=== PATIENT | male | born 1940 | race Caucasian/White ===

== ENCOUNTER 2022-12-15 00:45 | Inpatient (IN) | payer MEDICARE, BC ==
[2022-12-15 04:01] LABS: Hematocrit 49.6 % (42-50); Hemoglobin 15.4 g/dL (12.5-18.0); Red Blood Count 5.23 x10^6/uL (4.1-5.6); White Blood Count 8.2 x10^3/uL (4.0-10.5)
[2022-12-15 04:02] LABS: BASOPHIL % 0.6 % (0.0-0.4); IMMATURE GRAN % 0.1 % (0.00-0.4); Lymphocytes % 13.2 % (24.0-44.0); Mean Cell Volume 94.8 fL (78-100); Mean Corpuscular Hemoglobin 29.4 pg (26-32); Mean Platelet Volume 6.2 fL (7.5-11.0); Monocytes % 7.3 % (0.0-12.0); Neutrophil % 74.8 % (36.0-66.0); Platelet Count 217 x10^3/uL (150-450); Red Cell Distribution Width 14.2 % (11.5-14.0)
[2022-12-15 04:03] LABS: BLOOD UREA NITROGEN 38 mg/dL (9-20); Creatinine 1 1.73 mg/dL (0.66-1.25); EST GLOMERULAR FILTRATION RATE 40.4 ML/MIN; Glucose 99 mg/dL (74-106)
[2022-12-15 04:04] LABS: ALKALINE PHOSPHATASE 108 U/L (38-126); CHLORIDE 108 mmol/L (98-107); CK-Creatinine Phosphokinase 91 U/L (55-170); Calcium 9.2 mg/dL (8.4-10.2); Carbon Dioxide 28 mmol/L (22-30); MAGNESIUM 2.2 mg/dL (1.6-2.3); Potassium 4.9 mmol/L (3.5-5.1); SGOT/AST 25 U/L (17-59); SGPT/ALT 19 U/L (0-50); SODIUM 142 mmol/L (137-145); TROPONIN < 0.012 ng/mL (0.000-0.034); Total Protein 7.2 g/dL (6.3-8.2)
[2022-12-15 04:05] LABS: ANION GAP 10.9 MEQ/L (5-15); INR 1.14 (0.8-3.0); PROTIME 11.9 SECONDS (9.4-12.5); PTT 27.3 SECONDS (25.1-36.5)
[2022-12-15 04:06] LABS: Appearance 1 (Clear); Ketones Trace (Negative); Leukocyte Esterase Negative (Negative); Nitrite Negative (Negative); Protein,Urine Dip 30 (Negative); Specific Gravity 20 (1.005-1.030)
[2022-12-15 04:07] LABS: Bacteria None Seen /HPF (None Seen); Bilirubin Negative (Negative); Blood Negative (Negative); Epithelial Cells None Seen /HPF (None Seen); Glucose, Urine 100 mg/dL (Negative); RBC 0-2 /HPF (0-5); WBC 0-2 /HPF (0-5)
[2022-12-15 04:08] LABS: ADD URINE CULTURE? NO (NO)
[2022-12-15 05:00] LABS: INFLUENZA A NEGATIVE (NEGATIVE); INFLUENZA B NEGATIVE (NEGATIVE); RESPIRATORY SYNCTIAL VIRUS NEGATIVE (Negative); SARS-CoV-2 Xpert Express NEGATIVE (NEGATIVE)
--- NOTE | 2022-12-15 09:14 | XRAY ---
Indication: Acute mental status change. Left leg numbness. History atrial fibrillation. Multiple contiguous axial images obtained through the head without contrast. Comparison: January 20, 2016 Again age-appropriate global atrophy and moderate periventricular degenerative micro-ischemia bilaterally. No acute intracranial hemorrhage, abnormal extra-axial fluid collection, or mass effect. Fourth ventricle is midline without hydrocephalus. Bony calvarium intact. Moderate mucoperiosteal thickening both maxillary sinuses. Remaining paranasal sinuses and mastoid air cells are clear. Impression: Again nonacute senile brain. Incidental chronic maxillary sinusitis. Comment: Preliminary interpretation made by [facility]. No critical discrepancy.
--- NOTE | 2022-12-15 09:20 | XRAY ---
Indication: Left leg numbness. Multiple contiguous axial images obtained through the lumbar spine. Sagittal and coronal reformatted images obtained. Comparison: None Osseous structures demineralized. Bilateral L5-S1 posterior fusion hardware and intervertebral spacer produces beam artifact. Axial images negative for acute fracture, suspicious bony lesions, or spinal canal stenosis. There is mild broad-based L2-S1 disc bulge. Also minimal/mild T11-L4 degenerative vacuum disc phenomena. Incidental bilateral L5 spondylolysis with 4-5 mm anterior spondylolisthesis. Above findings produces subsequent bilateral L3-S1 foraminal/stenosis greatest at L5-S1 level. Sagittal and coronal reformatted images demonstrates normal lumbar lordosis. Multilevel disc space narrowing greatest at L2-L4 levels. Incidental tiny/small T11-L3 Schmorl nodes. No acute compression fracture. Visualized noncontrasted soft tissues demonstrates mild scattered aortoiliac calcifications and 2.7 cm left renal cyst. Impression: 1. Multilevel degenerative changes. Greatest extent at L5-S1 with there is bilateral spondylolysis with grade 1 listhesis and subsequent bilateral foraminal stenosis. 2. Incidental osteopenia, multilevel Schmorl nodes, L5-S1 fusion hardware, arteriosclerotic disease, and left renal cysts. Comment: Preliminary interpretation made by [facility]. No critical discrepancy.
[2022-12-15] MEDS: Sodium Chloride 0.9% 1000 ML 1,000 ML IV SCH ×2 (09:29→21:01)
[2022-12-15] MEDS: PROTONIX 40 MG IV IV SCH (09:29)
[2022-12-15] MEDS: ELIQUIS 2.5 MG TABLET PO SCH ×2 (11:02→20:58)
[2022-12-15] MEDS: Toprol Xl 100 MG PO SCH (11:02)
[2022-12-15] MEDS: ENTRESTO 49 MG-51 MG TABLET PO SCH ×2 (11:02→20:57)
--- NOTE | 2022-12-15 14:02 | XRAY ---
Indication: Left-sided weakness. Stroke. Sagittal, coronal, and axial MRI brain performed without contrast using T1, T2, FLAIR, diffusion, and ADC sequences. Comparison: None Age-appropriate global atrophy and moderate periventricular degenerative micro-ischemia signal bilaterally. Diffusion images demonstrates 2.0 x 1.0 cm focus of restricted signal right periventricular white matter anteriorly. Near the vertex, at least 2-3 additional subcentimeter foci of acute micro-ischemia seen right centrum semi-ovale. No acute intracranial hemorrhage, abnormal extra-axial fluid collection, or mass effect. Fourth ventricle is midline without hydrocephalus. 7/8 cranial nerve nerve complex bilateral and symmetric. Left parasellar internal carotid artery demonstrates signal either from sluggish flow versus occlusion. Normal flow void signal within the remaining major intracerebral circulation. Normal appearing craniocervical junction and sella turcica. Moderate mucosal thickening both maxillary sinuses. Impression: 1. Small focus acute ischemia right periventricular white matter anteriorly. Smaller acute micro-ischemia near the right vertex. No acute hemorrhage or mass effect. 2. Sluggish flow versus occlusion parasellar segment left internal carotid artery. 3. Atrophy and degenerative micro-ischemia within normal limits for patient's age. 4. Incidental bilateral maxillary sinus disease.
[2022-12-15] MEDS: Vitamin C 500 MG PO SCH (20:56)
[2022-12-15] MEDS: Calcium 500MG W/Vit D Tablet PO SCH (20:56)
[2022-12-15] MEDS ORDERED: NON-FORMULARY ITEM (Sacubitril/Valsartan [Entresto 24 Mg-26 Mg Tablet] 1 EACH Tablet) PO SCH (22:00)
[2022-12-15] MEDS ORDERED: NON-FORMULARY ITEM (Calcium Carbonate/Vitamin D3 [Calcium 250-D Tablet] 1 EACH Tablet) PO SCH (22:00)
[2022-12-15] MEDS ORDERED: NON-FORMULARY ITEM (Ascorbic Acid [Vitamin C] 1,000 MG Tablet) PO SCH (22:00)
[2022-12-16 06:11] LABS: Risk Ratio 4.1
[2022-12-16] MEDS: Sodium Chloride 0.9% 1000 ML 1,000 ML IV SCH ×2 (06:34→17:02)
[2022-12-16] MEDS ORDERED: TYLENOL 325 MG PO PRN (07:38)
[2022-12-16 08:41] LABS: Hematocrit 46.3 % (42-50); Hemoglobin 14.7 g/dL (12.5-18.0); Mean Cell Volume 93.7 fL (78-100); Mean Corpuscular Hemoglobin 29.8 pg (26-32); Mean Corpuscular Hgb Concent. 31.7 g/dL (32-36); Mean Platelet Volume 11.9 fL (7.5-11.0); Platelet Count 218 x10^3/uL (150-450); Red Blood Count 4.94 x10^6/uL (4.1-5.6); Red Cell Distribution Width 13.9 % (11.5-14.0); White Blood Count 6.3 x10^3/uL (4.0-10.5)
[2022-12-16] MEDS: ENTRESTO 49 MG-51 MG TABLET PO SCH ×2 (09:36→21:17)
[2022-12-16 09:37] LABS: ALBUMIN 3.5 g/dL (3.5-5.0); ANION GAP 8.1 MEQ/L (5-15); BILIRUBIN,TOTAL 0.5 mg/dL (0.2-1.3); Calcium 8.6 mg/dL (8.4-10.2); Creatinine 1 1.27 mg/dL (0.66-1.25); EST GLOMERULAR FILTRATION RATE 57.7 ML/MIN; Potassium 4.3 mmol/L (3.5-5.1); Total Protein 6.4 g/dL (6.3-8.2)
[2022-12-16] MEDS: ELIQUIS 2.5 MG TABLET PO SCH ×2 (09:37→21:16)
[2022-12-16] MEDS: PROTONIX 40 MG IV IV SCH (09:37)
[2022-12-16] MEDS: Toprol Xl 100 MG PO SCH (09:37)
--- NOTE | 2022-12-16 16:42 | PCM.HP ---
History of Present Illness - Chief Complaint Chief Complaint: left lower extrimity weakness for 1 day History of Present Illness: is a 82 year old male with significant past medical history of congestive heart failure and atrial fibrillation started having weakness on his left lower extremity: Symmetrically 5-6 hours ago with some difficulty in speech when patient was in the emergency room speech difficulty disappeared but still has some weakness in left lower extremity. Patient denies any loss of consciousness chest pain nausea vomiting shortness of breath. - Review of Systems Constitutional: No Fever, No Chills Eyes: No Symptoms Ears, Nose, & Throat: No Symptoms Respiratory: No Cough, No Short Of Breath Cardiac: No Chest Pain, No Edema, No Syncope Abdominal/Gastrointestinal: No Abdominal Pain, No Nausea, No Vomiting, No Diarrhea Genitourinary Symptoms: No Dysuria Musculoskeletal: No Back Pain, No Neck Pain Skin: No Rash Neurological: Focal Weakness, Sensory Changes, Speech Changes, No Dizziness Psychological: No Symptoms Endocrine: No Symptoms Hematologic/Lymphatic: No Symptoms Immunological/Allergic: No Symptoms Medications & Allergies Home Medications: Home Medication List Apixaban [Eliquis 2.5 mg Tablet] 2.5 mg PO BID 12/15/22 [History Confirmed 0 12/15/22] Ascorbic Acid [Vitamin C] 1,000 mg PO HS 12/15/22 [History Confirmed 12/15/22] Calcium Carbonate/Vitamin D3 [Calcium 250-D Tablet] 1 each PO HS 12/15/22 [History Confirmed 12/15/22] Metoprolol Succinate 100 mg [Toprol Xl 100 MG] 100 mg PO DAILY 12/15/22 [History Confirmed 12/15/22] Sacubitril/Valsartan [Entresto 24 mg-26 mg Tablet] 1 each PO BID 12/15/22 [History Confirmed 12/15/22] Allergies/Adverse Reactions: Allergies Allergy/AdvReac Type Severity Reaction Status Date / Time No Known Drug Allergies Allergy Unverified 01/20/16 17:03 - Past Medical History Past Medical History: No Cardiac History: Other Comment: AFIB - Past Surgical History Past Surgical History: Yes Musculskeletal Surgical Hx: Orthopedic Surgery - Social History Smoking Status: Never smoker Exposure to second hand smoke: No Alcohol: None Drug Use: none - Physical Exam Vital Signs: Vital Signs - 24 hr Temp Pulse Resp BP Pulse Ox 12/16/22 11:40 97.9 F 85 16 116/80 94 L 12/16/22 07:55 97.1 F 79 20 156/94 98 12/16/22 07:11 97 12/16/22 03:41 98.0 F 79 19 127/86 97 12/16/22 02:45 95 12/15/22 23:39 98.0 F 84 15 128/90 98 12/15/22 20:00 97.8 F 82 18 104/57 98 General Appearance: no apparent distress, alert Neurologic Exam: alert, oriented x 3, cooperative, normal mood/affect, nml cerebellar function, nml station & gait, motor deficits (left lower extrimity), sensory deficit Eye Exam: PERRL/EOMI, eyes nml inspection Ears, Nose, Throat Exam: normal ENT inspection, TMs normal, pharynx normal, moist mucous membranes Neck Exam: normal inspection, non-tender, supple, full range of motion Respiratory Exam: normal breath sounds, lungs clear, No respiratory distress Cardiovascular Exam: regular rate/rhythm, normal heart sounds, normal peripheral pulses Gastrointestinal/Abdomen Exam: soft, normal bowel sounds, No tenderness, No mass Back Exam: normal inspection, normal range of motion, No CVA tenderness, No vertebral tenderness Extremity Exam: normal inspection, normal range of motion, pelvis stable, parasthesia Skin Exam: normal color, warm, dry, No rash Lymphatic Exam: No adenopathy Results - Labs Lab/Micro Results: Lab Results-Last 24 Hours 12/16/22 12/16/22 12/16/22 Range/Units 05:20 05:20 05:24 WBC 6.3 (4.0-10.5) x10^3/uL RBC 4.94 (4.1-5.6) x10^6/uL Hgb 14.7 (12.5-18.0) g/dL Hct 46.3 (42-50) % MCV 93.7 (78-100) fL MCH 29.8 (26-32) pg MCHC 31.7 L (32-36) g/dL RDW 13.9 (11.5-14.0) % Plt Count 218 (150-450) x10^3/uL MPV 11.9 H (7.5-11.0) fL Sodium (137-145) mmol/L Potassium (3.5-5.1) mmol/L Chloride (98-107) mmol/L Carbon Dioxide (22-30) mmol/L Anion Gap (5-15) MEQ/L BUN (9-20) mg/dL Creatinine (0.66-1.25) mg/dL Estimated GFR ML/MIN Glucose (74-106) mg/dL Hemoglobin A1c 5.05 (4.5-6.0) % Calcium (8.4-10.2) mg/dL Total Bilirubin (0.2-1.3) mg/dL AST (17-59) U/L ALT (0-50) U/L Alkaline Phosphatase (38-126) U/L Serum Total Protein (6.3-8.2) g/dL Albumin (3.5-5.0) g/dL Triglycerides 71 (30-150) mg/dL Cholesterol 184 (50-200) mg/dL LDL Cholesterol 100 (30-100) mg/dL HDL Cholesterol 45 (40-60) mg/dL Heart Disease Risk Ratio 4.1 12/16/22 Range/Units 05:24 WBC (4.0-10.5) x10^3/uL RBC (4.1-5.6) x10^6/uL Hgb (12.5-18.0) g/dL Hct (42-50) % MCV (78-100) fL MCH (26-32) pg MCHC (32-36) g/dL RDW (11.5-14.0) % Plt Count (150-450) x10^3/uL MPV (7.5-11.0) fL Sodium 138 (137-145) mmol/L Potassium 4.3 (3.5-5.1) mmol/L Chloride 112 H (98-107) mmol/L Carbon Dioxide 22 (22-30) mmol/L Anion Gap 8.1 (5-15) MEQ/L BUN 30 H (9-20) mg/dL Creatinine 1.27 H (0.66-1.25) mg/dL Estimated GFR 57.7 ML/MIN Glucose 88 (74-106) mg/dL Hemoglobin A1c (4.5-6.0) % Calcium 8.6 (8.4-10.2) mg/dL Total Bilirubin 0.50 (0.2-1.3) mg/dL AST 20 (17-59) U/L ALT 16 (0-50) U/L Alkaline Phosphatase 91 (38-126) U/L Serum Total Protein 6.4 (6.3-8.2) g/dL Albumin 3.5 (3.5-5.0) g/dL Triglycerides (30-150) mg/dL Cholesterol (50-200) mg/dL LDL Cholesterol (30-100) mg/dL HDL Cholesterol (40-60) mg/dL Heart Disease Risk Ratio - Radiology Impressions Radiology Exams & Impressions: Radiology Procedures Category Date Time Status HEAD WITHOUT CONTRAST [CT] Routine Exams 12/15/22 04:03 Completed LUMBAR SPINE W/O [CT] Routine Exams 12/15/22 04:02 Completed MRI BRAIN W/O CONTRAST [MRI] Routine Exams 12/15/22 11:15 Completed MRI/MRI BRAIN W/O CONTRAST Indication: Left-sided weakness. Stroke. Sagittal, coronal, and axial MRI brain performed without contrast using T1, T2, FLAIR, diffusion, and ADC sequences. Comparison: None Age-appropriate global atrophy and moderate periventricular degenerative micro-ischemia signal bilaterally. Diffusion images demonstrates 2.0 x 1.0 cm focus of restricted signal right periventricular white matter anteriorly. Near the vertex, at least 2-3 additional subcentimeter foci of acute micro-ischemia seen right centrum semi-ovale. No acute intracranial hemorrhage, abnormal extra-axial fluid collection, or mass effect. Fourth ventricle is midline without hydrocephalus. 7/8 cranial nerve nerve complex bilateral and symmetric. Left parasellar internal carotid artery demonstrates signal either from sluggish flow versus occlusion. Normal flow void signal within the remaining major intracerebral circulation. Normal appearing craniocervical junction and sella turcica. Moderate mucosal thickening both maxillary sinuses. Impression: 1. Small focus acute ischemia right periventricular white matter anteriorly. Smaller acute micro-ischemia near the right vertex. No acute hemorrhage or mass effect. 2. Sluggish flow versus occlusion parasellar segment left internal carotid artery. 3. Atrophy and degenerative micro-ischemia within normal limits for patient's age. 4. Incidental bilateral maxillary sinus disease. - Other Procedures and Tests Respiratory Therapy 12/16/22 05:14 Oxygen Nasal Cannula 3 lpm Assessment/Plan (1) TIA (transient ischemic attack) Current Visit: Yes Status: Acute Qualifiers: Transient cerebral ischemia type: carotid artery syndrome (hemispheric) Qualified Code(s): G45.1 - Carotid artery syndrome (hemispheric) Assessment & Plan: Chief Complaint Diagnosis left lower extrimity weakness for 1 day Allergies Allergy/AdvReac Type Severity Reaction Status Date / Time No Known Drug Allergies Allergy Unverified 01/20/16 17:03 Vital Signs (Last 24 hours) Temp Pulse Resp BP Pulse Ox 12/16/22 16:00 97.9 F 86 16 166/91 97 12/16/22 11:40 97.9 F 85 16 116/80 94 L 12/16/22 07:55 97.1 F 79 20 156/94 98 12/16/22 07:11 97 12/16/22 03:41 98.0 F 79 19 127/86 97 12/16/22 02:45 95 12/15/22 23:39 98.0 F 84 15 128/90 98 12/15/22 20:00 97.8 F 82 18 104/57 98 Home Medications Medication Instructions Recorded Confirmed Last Taken Type Apixaban [Eliquis 2.5 mg Tablet] 2.5 mg PO BID 12/15/22 12/15/22 12/14/22 11:00 History Ascorbic Acid [Vitamin C] 1,000 mg PO HS 12/15/22 12/15/22 12/13/22 23:00 History Calcium Carbonate/Vitamin D3 1 each PO HS 12/15/22 12/15/22 12/13/22 23:00 History [Calcium 250-D Tablet] Metoprolol Succinate 100 mg 100 mg PO DAILY 12/15/22 12/15/22 12/14/22 11:00 History [Toprol Xl 100 MG] Sacubitril/Valsartan [Entresto 24 1 each PO BID 12/15/22 12/15/22 12/14/22 11:00 History mg-26 mg Tablet] Current Medications Generic Name Dose Route Start Last Admin Trade Name Freq PRN Reason Stop Dose Admin Acetaminophen 325 mg 12/16/22 07:38 12/16/22 08:16 Acetaminophen 325 Mg Tablet PO 01/15/23 07:37 325 mg Q4H PRN PRN Administration PAIN, FEVER, HEADACHE Apixaban 2.5 mg 12/15/22 11:00 12/16/22 09:37 Apixaban 2.5 Mg Tablet PO 01/14/23 10:59 2.5 mg BID MASON Administration Ascorbic Acid 1,000 mg 12/15/22 22:00 12/15/22 20:56 Ascorbic Acid 500 Mg Tablet PO 01/14/23 21:59 1,000 mg HS MASON Administration Calcium Carbonate 0.5 tab 12/15/22 22:00 12/15/22 20:56 Calcium 500 Mg W/Vit D PO 01/14/23 21:59 0.5 tab HS MASON Administration Sodium Chloride 1,000 mls @ 100 mls/hr 12/15/22 08:45 12/16/22 06:34 Sodium Chloride 0.9% 1000 Ml IV 01/14/23 08:44 100 mls/hr .Q10H MASON Administration Metoprolol Succinate 100 mg 12/15/22 11:00 12/16/22 09:37 Metoprolol Succinate 100 Mg Tablet.Sa PO 01/14/23 10:59 100 mg DAILY MASON Administration Pantoprazole Sodium 40 mg 12/15/22 10:00 12/16/22 09:37 Pantoprazole 40 Mg Vial IV 01/14/23 09:59 40 mg DAILY MAOSN Administration Sacubitril/Valsartan 0.5 tablet 12/15/22 11:00 12/16/22 09:36 Sacubitril/Valsartan 1 Tablet Tablet PO 01/14/23 10:59 0.5 tablet BID MASON Administration Intake & Output (Last 24 hours) 12/14/22 12/15/22 12/16/22 12/17/22 11:59 11:59 11:59 11:59 Intake Total 240 2809 300 Output Total 1675 Balance 240 1134 300 Weight 80.2 kg Laboratory Results (Last 24 hours) 12/16/22 12/16/22 12/16/22 05:24 05:24 05:20 WBC 6.3 RBC 4.94 Hgb 14.7 Hct 46.3 MCV 93.7 MCH 29.8 MCHC 31.7 L RDW 13.9 Plt Count 218 MPV 11.9 H Sodium 138 Potassium 4.3 Chloride 112 H Carbon Dioxide 22 Anion Gap 8.1 BUN 30 H Creatinine 1.27 H Estimated GFR 57.7 Glucose 88 Hemoglobin A1c 5.05 Calcium 8.6 Total Bilirubin 0.50 AST 20 ALT 16 Alkaline Phosphatase 91 Serum Total Protein 6.4 Albumin 3.5 Triglycerides Cholesterol LDL Cholesterol HDL Cholesterol Heart Disease Risk Ratio 12/16/22 05:20 WBC RBC Hgb Hct MCV MCH MCHC RDW Plt Count MPV Sodium Potassium Chloride Carbon Dioxide Anion Gap BUN Creatinine Estimated GFR Glucose Hemoglobin A1c Calcium Total Bilirubin AST ALT Alkaline Phosphatase Serum Total Protein Albumin Triglycerides 71 Cholesterol 184 LDL Cholesterol 100 HDL Cholesterol 45 Heart Disease Risk Ratio 4.1 Orders (Last 24 hours) Category Date Time Status House Regular Diet Diet 12/15/22 Dinner Active CBC AM.LAB Lab 12/17/22 04:00 Ordered CBC Routine Lab 12/16/22 05:24 Completed CMP AM.LAB Lab 12/17/22 04:00 Ordered CMP Routine Lab 12/16/22 05:24 Completed HEMOGLOBIN A1C Routine Lab 12/16/22 05:20 Completed LIPID PROFILE AM.LAB Lab 12/16/22 05:20 Completed Acetaminophen 325 mg [Tylenol 325 mg] Med 12/16/22 07:38 Active 325 mg PO Q4H PRN PRN Ascorbic Acid 500 mg [Vitamin C 500 MG] Med 12/15/22 22:00 Active 1,000 mg PO HS Calcium Carb/Vitamin D 500 mg* [Calcium 500MG W/Vit D Med 12/15/22 22:00 Active Tablet] 0.5 tab PO HS Oxygen Nasal Cannula 3 lpm RT 12/16/22 05:14 Active Pulse Oximetry .continuos RT 12/16/22 05:13 Active Patient Care Notes (Last 24 hours) 12/16/22 12:13 Nursing Note by Shila Zamarripa ROUNDED ON PATIENT WITH DR. LIVINGSTON. NO NEW ORDERS AT THIS TIME. Initialized on 12/16/22 12:13 - END OF NOTE 12/16/22 10:51 OT Plan of Care Note by Lamar Botello OT Eval OT Eval and Treat MD Order Start: 12/15/22 08:14 Freq: ROUTINE Status: Active Protocol: Created 12/15/22 08:14 JACINTA (Rec: 12/15/22 08:14 JACINTA [id number]) Document 12/15/22 17:24 SHERRELL (Rec: 12/15/22 17:24 SHERRELL [id number]) OT Assessment Pertinent Past Medical History PMH: AFIB,TIA, BACK SURGERY IN 2021, RIGHT ROTATOR CUFF SX IN 2000, LEFT RTC SURGERY IN 2004, CATARACTS REMOVED CURRENT: PATIENT TRIED TO GET UP AROUND 10 PM FOR BATHROOM, AND UNABLE TO MOVE LEFT LEG AND ARM. PATIENT ADMITTED TO HOSPITAL FOR POSSIBLE CVA. PATIENT PRESENTS WITH IMPAIRMENTS IN COORDINATION, BALANCE, AND LEFT SIDE WEAKNESS. Equipment at Home Prior to Admission None Comment BATHROOM: TUB/SHOWER COMBO, RAISED TOILET SEAT LIVES IN 1 LEVEL HOUSE WITH 2 STEPS TO ENTER Date 12/16/22 Feeding WFL Comment SET UP ASSIST Grooming Impaired Comment MIN ASSIST Bathing Impaired Comment MOD ASSIST Dressing Impaired Comment UB: MIN ASSIST LB: MAX ASSIST SOCKS/SHOES: MAX ASSIST Toileting Impaired Comment MOD ASSIST (CLOTHING MANAGEMENT) HYGIENE (SBA) IADLS (If indicated) Homemaking,etc Impaired Bed Mobility Impaired Comment MOD ASSIST FOR SUPINE<>SIT T/F Toilet Transfers Impaired Comment MOD ASSIST Functional Transfers Impaired Comment MOD ASSIST (RECOMMEND MIN ASSIST X2) Functional Endurance FAIR (-): APPROXIMATELY 15 MINUTES IN SITTING POOR (+): APPROXIMATELY 5 MINUTES IN STANDING Cognition ALERT AND ORIENTED X4, FAIR AWARENESS TO LEFT LATERAL LEAN Other Objective Data NO REPORTED PAIN, LEFT UE MMT: 4-/5 AND RIGHT UE MMT: 4+/5, VISUAL ACUITY WFL, SIGNIFICANT LEFT LATERAL LEAN AND KNEE BUCKLING IN STANDING. MIN ASSIST FOR SITTING BALANCE (UE SUPPORT); MAX ASSIST WITH UNSUPPORTED SITTING. Adaptive Equipment/Durable Medical RAISED TOILET SEAT WITH Equipment needed/recommended HANDLES, TUB TRANSFER BENCH, HANDRAIL INTO HOME; OUTPATIENT THERAPY UPON RETURN HOME. Functional Problem List PATIENT PRESENTS WITH LEFT UE AND LE WEAKNESS, IMPAIRED BALANCE, POOR INTERLIMB COORDINATION, DECREASED ACTIVITY TOLERANCE, AND SAFETY AWARENESS Pain Limitations 0/10 Therapuetic Interventions ADLS, FUNCTIONAL ACTIVITY, THERAPEUTIC EXERCISES, NEURO REHAB, FUNCTIONAL TRANSFERS AND MOBILITY, SAFETY AWARENESS Functional Goals of Treatment 1. PATIENT WILL COMPLETE ADLS WITH SBA WITHIN 14 DAYS TO MAXIMIZE INDEPENDENCE WITH I/ ADLS AND REDUCE CAREGIVER BURDEN. 2. PATIENT WILL COMPLETE FUNCTIONAL TRANSFERS MOD INDEP WITHIN 14 DAYS TO IMPROVE INDEPENDENCE WITH I/ADLS. 3. PATIENT WILL INCREASE BUE STRENGTH TO 4+/5 MMT TO IMPROVE ABILITY TO MANAGE AND CARRY I/ADL OBJECTS (CLOTHING, TOILETRY OBJECTS, WALKER, MEALS/CUPS) WITHIN 14 DAYS. 4. PATIENT WILL DEMO UNDERSTANDING AND INDEPENDENCE WITH ALL SAFETY AND ADL EDUCATION WITHIN 14 DAYS TO MAXIMIZE SAFETY WITH RETURN HOME. OT Inpatient Plan of Care Date of Evaluation 12/16/22 Treatment Diagnosis LEFT LE WEAKNESS Frequency/Duration 5X/WEEK Patient assessed for Rehab Services Yes Was notification received of nursing Yes assessment trigger Chart screen completed Yes Are referral orders warranted for Yes evaluation Is an intervention justified at this Yes time Initialized on 12/16/22 10:51 - END OF NOTE 12/16/22 03:05 Nursing Note by Gretchen Omer while sleeping pts 02 dropping to low 70's then back up to low 90's called RT, this nurse went to check on pt he was snoring had O2 probe on finger, called RT, observed pt sleeping and he was snoring then breathing would stop for several seconds, woke pt and put him on O2 ask him about sleep apnea and if used a cpap machine at home, he stated that he used to [facility] ask why he stopped and he stated that he "didn't like it". Let pt know that we had observed him sleeping and that he was stopping breathing for several seconds in a pretty stepwise pattern. Pt agreeable to put 2L of O2 on per NC. Initialized on 12/16/22 03:05 - END OF NOTE (2) Hypertensive CHF (congestive heart failure) Current Visit: Yes Status: Acute Qualifiers: Heart failure type: combined systolic and diastolic Heart failure chronicity: acute on chronic Qualified Code(s): I11.0 - Hypertensive heart disease with heart failure; I50.43 - Acute on chronic combined systolic (congestive) and diastolic (congestive) heart failure Code(s): I11.0 - HYPERTENSIVE HEART DISEASE WITH HEART FAILURE (3) Systolic CHF with reduced left ventricular function, NYHA class 3 Current Visit: Yes Status: Acute Code(s): I50.20 - UNSPECIFIED SYSTOLIC (CONGESTIVE) HEART FAILURE (4) A-fib Current Visit: No Status: Acute Qualifiers: Atrial fibrillation type: unspecified Qualified Code(s): I48.91 - Unspecified atrial fibrillation Code(s): I48.91 - UNSPECIFIED ATRIAL FIBRILLATION
--- NOTE | 2022-12-16 16:45 | PCM.NOTE ---
Date and Time: 12/16/22 1644 Subjective Assessment: doing better. some weakness in LLE - Review of Systems Constitutional: No Fever, No Chills Eyes: No Symptoms Ears, Nose, & Throat: No Symptoms Respiratory: No Cough, No Short Of Breath Cardiac: No Chest Pain, No Edema, No Syncope Abdominal/Gastrointestinal: No Abdominal Pain, No Nausea, No Vomiting, No Diarrhea Genitourinary Symptoms: No Dysuria Musculoskeletal: No Back Pain, No Neck Pain Skin: No Rash Neurological: Focal Weakness, No Dizziness, No Sensory Changes Psychological: No Symptoms Endocrine: No Symptoms Hematologic/Lymphatic: No Symptoms Immunological/Allergic: No Symptoms Objective Exam General Appearance: no apparent distress, alert Neurologic Exam: alert, oriented x 3, cooperative, normal mood/affect, nml cerebellar function, sensation nml, motor deficits, sensory deficit, No slurred speech, No aphasia Skin Exam: normal color, warm, dry Eye Exam: PERRL, EOMI, eyes nml inspection Ears, Nose, Throat Exam: normal ENT inspection, pharynx normal, moist mucous membranes Neck Exam: normal inspection, non-tender, supple, full range of motion Respiratory Exam: normal breath sounds, lungs clear, No respiratory distress Cardiovascular Exam: regular rate/rhythm, normal heart sounds Gastrointestinal/Abdomen Exam: soft, No tenderness, No mass Extremity Exam: normal inspection, normal range of motion Back Exam: normal inspection, normal range of motion, No CVA tenderness, No vertebral tenderness Male Genitalia Exam: deferred Rectal Exam: deferred OBJECTIVE DATA Vital Signs: Vital Signs - 24 hr Temp Pulse Resp BP Pulse Ox 12/16/22 16:00 97.9 F 86 16 166/91 97 12/16/22 11:40 97.9 F 85 16 116/80 94 L 12/16/22 07:55 97.1 F 79 20 156/94 98 12/16/22 07:11 97 12/16/22 03:41 98.0 F 79 19 127/86 97 12/16/22 02:45 95 12/15/22 23:39 98.0 F 84 15 128/90 98 12/15/22 20:00 97.8 F 82 18 104/57 98 Pain Assessment - Last Documented Pain Intensity 0 Pain Scale Used 0-10 Pain Scale Intake and Output: Intake & Output 12/14/22 12/15/22 12/16/22 12/17/22 11:59 11:59 11:59 11:59 Intake Total 240 2809 300 Output Total 8425 Balance 240 1134 300 Weight 80.2 kg Lab Results: Lab Results-Last 24 Hours 12/16/22 12/16/22 12/16/22 Range/Units 05:20 05:20 05:24 WBC 6.3 (4.0-10.5) x10^3/uL RBC 4.94 (4.1-5.6) x10^6/uL Hgb 14.7 (12.5-18.0) g/dL Hct 46.3 (42-50) % MCV 93.7 (78-100) fL MCH 29.8 (26-32) pg MCHC 31.7 L (32-36) g/dL RDW 13.9 (11.5-14.0) % Plt Count 218 (150-450) x10^3/uL MPV 11.9 H (7.5-11.0) fL Sodium (137-145) mmol/L Potassium (3.5-5.1) mmol/L Chloride (98-107) mmol/L Carbon Dioxide (22-30) mmol/L Anion Gap (5-15) MEQ/L BUN (9-20) mg/dL Creatinine (0.66-1.25) mg/dL Estimated GFR ML/MIN Glucose (74-106) mg/dL Hemoglobin A1c 5.05 (4.5-6.0) % Calcium (8.4-10.2) mg/dL Total Bilirubin (0.2-1.3) mg/dL AST (17-59) U/L ALT (0-50) U/L Alkaline Phosphatase (38-126) U/L Serum Total Protein (6.3-8.2) g/dL Albumin (3.5-5.0) g/dL Triglycerides 71 (30-150) mg/dL Cholesterol 184 (50-200) mg/dL LDL Cholesterol 100 (30-100) mg/dL HDL Cholesterol 45 (40-60) mg/dL Heart Disease Risk Ratio 4.1 12/16/22 Range/Units 05:24 WBC (4.0-10.5) x10^3/uL RBC (4.1-5.6) x10^6/uL Hgb (12.5-18.0) g/dL Hct (42-50) % MCV (78-100) fL MCH (26-32) pg MCHC (32-36) g/dL RDW (11.5-14.0) % Plt Count (150-450) x10^3/uL MPV (7.5-11.0) fL Sodium 138 (137-145) mmol/L Potassium 4.3 (3.5-5.1) mmol/L Chloride 112 H (98-107) mmol/L Carbon Dioxide 22 (22-30) mmol/L Anion Gap 8.1 (5-15) MEQ/L BUN 30 H (9-20) mg/dL Creatinine 1.27 H (0.66-1.25) mg/dL Estimated GFR 57.7 ML/MIN Glucose 88 (74-106) mg/dL Hemoglobin A1c (4.5-6.0) % Calcium 8.6 (8.4-10.2) mg/dL Total Bilirubin 0.50 (0.2-1.3) mg/dL AST 20 (17-59) U/L ALT 16 (0-50) U/L Alkaline Phosphatase 91 (38-126) U/L Serum Total Protein 6.4 (6.3-8.2) g/dL Albumin 3.5 (3.5-5.0) g/dL Triglycerides (30-150) mg/dL Cholesterol (50-200) mg/dL LDL Cholesterol (30-100) mg/dL HDL Cholesterol (40-60) mg/dL Heart Disease Risk Ratio Radiology Exams: Radiology Procedures Category Date Time Status HEAD WITHOUT CONTRAST [CT] Routine Exams 12/15/22 04:03 Completed LUMBAR SPINE W/O [CT] Routine Exams 12/15/22 04:02 Completed MRI BRAIN W/O CONTRAST [MRI] Routine Exams 12/15/22 11:15 Completed Multi-Disciplinary Progress Notes: Multi-Disciplinary Progress Notes 12/16/22 10:51 OT Plan of Care Note by Lamar Botello OT Eval OT Eval and Treat MD Order Start: 12/15/22 08:14 Freq: ROUTINE Status: Active Protocol: Created 12/15/22 08:14 JACINTA (Rec: 12/15/22 08:14 JACINTA [id number]) Document 12/15/22 17:24 SHERRELL (Rec: 12/15/22 17:24 KA [id number]) OT Assessment Pertinent Past Medical History PMH: AFIB,TIA, BACK SURGERY IN 2021, RIGHT ROTATOR CUFF SX IN 2000, LEFT RTC SURGERY IN 2004, CATARACTS REMOVED CURRENT: PATIENT TRIED TO GET UP AROUND 10 PM FOR BATHROOM, AND UNABLE TO MOVE LEFT LEG AND ARM. PATIENT ADMITTED TO HOSPITAL FOR POSSIBLE CVA. PATIENT PRESENTS WITH IMPAIRMENTS IN COORDINATION, BALANCE, AND LEFT SIDE WEAKNESS. Equipment at Home Prior to Admission None Comment BATHROOM: TUB/SHOWER COMBO, RAISED TOILET SEAT LIVES IN 1 LEVEL HOUSE WITH 2 STEPS TO ENTER Date 12/16/22 Feeding WFL Comment SET UP ASSIST Grooming Impaired Comment MIN ASSIST Bathing Impaired Comment MOD ASSIST Dressing Impaired Comment UB: MIN ASSIST LB: MAX ASSIST SOCKS/SHOES: MAX ASSIST Toileting Impaired Comment MOD ASSIST (CLOTHING MANAGEMENT) HYGIENE (SBA) IADLS (If indicated) Homemaking,etc Impaired Bed Mobility Impaired Comment MOD ASSIST FOR SUPINE<>SIT T/F Toilet Transfers Impaired Comment MOD ASSIST Functional Transfers Impaired Comment MOD ASSIST (RECOMMEND MIN ASSIST X2) Functional Endurance FAIR (-): APPROXIMATELY 15 MINUTES IN SITTING POOR (+): APPROXIMATELY 5 MINUTES IN STANDING Cognition ALERT AND ORIENTED X4, FAIR AWARENESS TO LEFT LATERAL LEAN Other Objective Data NO REPORTED PAIN, LEFT UE MMT: 4-/5 AND RIGHT UE MMT: 4+/5, VISUAL ACUITY WFL, SIGNIFICANT LEFT LATERAL LEAN AND KNEE BUCKLING IN STANDING. MIN ASSIST FOR SITTING BALANCE (UE SUPPORT); MAX ASSIST WITH UNSUPPORTED SITTING. Adaptive Equipment/Durable Medical RAISED TOILET SEAT WITH Equipment needed/recommended HANDLES, TUB TRANSFER BENCH, HANDRAIL INTO HOME; OUTPATIENT THERAPY UPON RETURN HOME. Functional Problem List PATIENT PRESENTS WITH LEFT UE AND LE WEAKNESS, IMPAIRED BALANCE, POOR INTERLIMB COORDINATION, DECREASED ACTIVITY TOLERANCE, AND SAFETY AWARENESS Pain Limitations 0/10 Therapuetic Interventions ADLS, FUNCTIONAL ACTIVITY, THERAPEUTIC EXERCISES, NEURO REHAB, FUNCTIONAL TRANSFERS AND MOBILITY, SAFETY AWARENESS Functional Goals of Treatment 1. PATIENT WILL COMPLETE ADLS WITH SBA WITHIN 14 DAYS TO MAXIMIZE INDEPENDENCE WITH I/ ADLS AND REDUCE CAREGIVER BURDEN. 2. PATIENT WILL COMPLETE FUNCTIONAL TRANSFERS MOD INDEP WITHIN 14 DAYS TO IMPROVE INDEPENDENCE WITH I/ADLS. 3. PATIENT WILL INCREASE BUE STRENGTH TO 4+/5 MMT TO IMPROVE ABILITY TO MANAGE AND CARRY I/ADL OBJECTS (CLOTHING, TOILETRY OBJECTS, WALKER, MEALS/CUPS) WITHIN 14 DAYS. 4. PATIENT WILL DEMO UNDERSTANDING AND INDEPENDENCE WITH ALL SAFETY AND ADL EDUCATION WITHIN 14 DAYS TO MAXIMIZE SAFETY WITH RETURN HOME. OT Inpatient Plan of Care Date of Evaluation 12/16/22 Treatment Diagnosis LEFT LE WEAKNESS Frequency/Duration 5X/WEEK Patient assessed for Rehab Services Yes Was notification received of nursing Yes assessment trigger Chart screen completed Yes Are referral orders warranted for Yes evaluation Is an intervention justified at this Yes time Initialized on 12/16/22 10:51 - END OF NOTE Assessment/Plan (1) TIA (transient ischemic attack) Current Visit: Yes Status: Acute Qualifiers: Transient cerebral ischemia type: carotid artery syndrome (hemispheric) Qualified Code(s): G45.1 - Carotid artery syndrome (hemispheric) Assessment & Plan: Last Vital Signs Temp 97.9 F 12/16/22 16:00 Pulse 86 12/16/22 16:00 Resp 16 12/16/22 16:00 BP 166/91 12/16/22 16:00 Pulse Ox 97 12/16/22 16:00 Allergies No Known Drug Allergies Allergy (Unverified 01/20/16 17:03) Active Medications Acetaminophen (Acetaminophen 325 Mg Tablet) 325 mg PO Q4H PRN PRN PRN Reason: PAIN, FEVER, HEADACHE Stop: 01/15/23 07:37 Last Admin: 12/16/22 08:16 Dose: 325 mg Apixaban (Apixaban 2.5 Mg Tablet) 2.5 mg PO BID [facility] Stop: 01/14/23 10:59 Last Admin: 12/16/22 09:37 Dose: 2.5 mg Ascorbic Acid (Ascorbic Acid 500 Mg Tablet) 1,000 mg PO HS [facility] Stop: 01/14/23 21:59 Last Admin: 12/15/22 20:56 Dose: 1,000 mg Calcium Carbonate (Calcium 500 Mg W/Vit D) 0.5 tab PO HS [facility] Stop: 01/14/23 21:59 Last Admin: 12/15/22 20:56 Dose: 0.5 tab Sodium Chloride (Sodium Chloride 0.9% 1000 Ml) 1,000 mls @ 100 mls/hr IV .Q10H [facility] Stop: 01/14/23 08:44 Last Admin: 12/16/22 06:34 Dose: 100 mls/hr Metoprolol Succinate (Metoprolol Succinate 100 Mg Tablet.Sa) 100 mg PO DAILY [facility] Stop: 01/14/23 10:59 Last Admin: 12/16/22 09:37 Dose: 100 mg Pantoprazole Sodium (Pantoprazole 40 Mg Vial) 40 mg IV DAILY [facility] Stop: 01/14/23 09:59 Last Admin: 12/16/22 09:37 Dose: 40 mg Sacubitril/Valsartan (Sacubitril/Valsartan 1 Tablet Tablet) 0.5 tablet PO BID [facility] Stop: 01/14/23 10:59 Last Admin: 12/16/22 09:36 Dose: 0.5 tablet Intake & Output 12/16/22 12/17/22 11:59 11:59 Intake Total 2809 300 Output Total 1675 Balance 1134 300 Orders 12/15/22 Dinner House Regular Diet 12/15/22 22:00 Ascorbic Acid 500 mg [Vitamin C 500 MG] 1,000 mg PO HS Calcium Carb/Vitamin D 500 mg* [Calcium 500MG W/Vit D Tablet] 0.5 tab PO HS 12/16/22 05:13 Pulse Oximetry .continuos 12/16/22 05:14 Oxygen Nasal Cannula 3 lpm 12/16/22 07:38 Acetaminophen 325 mg [Tylenol 325 mg] 325 mg PO Q4H PRN PRN 12/17/22 04:00 CBC AM.LAB CMP AM.LAB Lab Tests 12/16/22 12/16/22 12/16/22 05:20 05:20 05:24 WBC 6.3 RBC 4.94 Hgb 14.7 Hct 46.3 MCV 93.7 MCH 29.8 MCHC 31.7 L RDW 13.9 Plt Count 218 MPV 11.9 H Sodium Potassium Chloride Carbon Dioxide Anion Gap BUN Creatinine Estimated GFR Glucose Hemoglobin A1c 5.05 Calcium Total Bilirubin AST ALT Alkaline Phosphatase Serum Total Protein Albumin Triglycerides 71 Cholesterol 184 LDL Cholesterol 100 HDL Cholesterol 45 Heart Disease Risk Ratio 4.1 12/16/22 05:24 WBC RBC Hgb Hct MCV MCH MCHC RDW Plt Count MPV Sodium 138 Potassium 4.3 Chloride 112 H Carbon Dioxide 22 Anion Gap 8.1 BUN 30 H Creatinine 1.27 H Estimated GFR 57.7 Glucose 88 Hemoglobin A1c Calcium 8.6 Total Bilirubin 0.50 AST 20 ALT 16 Alkaline Phosphatase 91 Serum Total Protein 6.4 Albumin 3.5 Triglycerides Cholesterol LDL Cholesterol HDL Cholesterol Heart Disease Risk Ratio (2) Hypertensive CHF (congestive heart failure) Current Visit: Yes Status: Acute Qualifiers: Heart failure type: combined systolic and diastolic Heart failure chronicity: acute on chronic Qualified Code(s): I11.0 - Hypertensive heart disease with heart failure; I50.43 - Acute on chronic combined systolic (congestive) and diastolic (congestive) heart failure Code(s): I11.0 - HYPERTENSIVE HEART DISEASE WITH HEART FAILURE (3) Systolic CHF with reduced left ventricular function, NYHA class 3 Current Visit: Yes Status: Acute Code(s): I50.20 - UNSPECIFIED SYSTOLIC (CONGESTIVE) HEART FAILURE (4) A-fib Current Visit: No Status: Acute Qualifiers: Atrial fibrillation type: unspecified Qualified Code(s): I48.91 - Unspecified atrial fibrillation Code(s): I48.91 - UNSPECIFIED ATRIAL FIBRILLATION
[2022-12-16] MEDS ORDERED: SENOKOT 8.6 MG PO PRN (16:55)
[2022-12-16] MEDS: Vitamin C 500 MG PO SCH (21:17)
[2022-12-16] MEDS: Calcium 500MG W/Vit D Tablet PO SCH (21:17)
[2022-12-17] MEDS: Sodium Chloride 0.9% 1000 ML 1,000 ML IV SCH ×3 (03:52→23:37)
[2022-12-17 06:26] LABS: Hematocrit 46.9 % (42-50); Hemoglobin 14.6 g/dL (12.5-18.0); Mean Cell Volume 96.3 fL (78-100); Mean Corpuscular Hgb Concent. 31.1 g/dL (32-36); Mean Platelet Volume 11.6 fL (7.5-11.0); Platelet Count 187 x10^3/uL (150-450); Red Blood Count 4.87 x10^6/uL (4.1-5.6); White Blood Count 7.1 x10^3/uL (4.0-10.5)
[2022-12-17 06:39] LABS: ALBUMIN 3.4 g/dL (3.5-5.0); BILIRUBIN,TOTAL 0.6 mg/dL (0.2-1.3); Calcium 8.5 mg/dL (8.4-10.2); Creatinine 1 1.26 mg/dL (0.66-1.25); EST GLOMERULAR FILTRATION RATE 58.2 ML/MIN; Total Protein 6.3 g/dL (6.3-8.2)
[2022-12-17] MEDS ORDERED: SENOKOT 8.6 MG PO PRN (07:15)
--- NOTE | 2022-12-17 08:09 | PCM.NOTE ---
Date and Time: 12/17/22807 Subjective Assessment: doing better - Review of Systems Constitutional: No Fever, No Chills Eyes: No Symptoms Ears, Nose, & Throat: No Symptoms Respiratory: No Cough, No Short Of Breath Cardiac: No Chest Pain, No Edema, No Syncope Abdominal/Gastrointestinal: No Abdominal Pain, No Nausea, No Vomiting, No Diarrhea Genitourinary Symptoms: No Dysuria Musculoskeletal: No Back Pain, No Neck Pain Skin: No Rash Neurological: Focal Weakness (LLE), No Dizziness, No Sensory Changes Psychological: No Symptoms Endocrine: No Symptoms Hematologic/Lymphatic: No Symptoms Immunological/Allergic: No Symptoms Objective Exam General Appearance: no apparent distress, alert Neurologic Exam: alert, oriented x 3, cooperative, tower observer II-XII nml as tested, sensation nml, motor deficits (LLE) Skin Exam: normal color, warm, dry Eye Exam: PERRL, EOMI, eyes nml inspection Ears, Nose, Throat Exam: normal ENT inspection, pharynx normal, moist mucous membranes Neck Exam: normal inspection, non-tender, supple, full range of motion Respiratory Exam: normal breath sounds, lungs clear, No respiratory distress Cardiovascular Exam: regular rate/rhythm, normal heart sounds Gastrointestinal/Abdomen Exam: soft, No tenderness, No mass Extremity Exam: normal inspection, normal range of motion Back Exam: normal inspection, normal range of motion, No CVA tenderness, No vertebral tenderness Male Genitalia Exam: deferred Rectal Exam: deferred OBJECTIVE DATA Vital Signs: Vital Signs - 24 hr Temp Pulse Resp BP Pulse Ox 12/17/22 07:59 97.8 F 80 14 149/97 98 12/17/22 06:52 94 L 12/17/22 03:55 97.5 F 84 16 164/90 95 12/16/22 23:42 97.8 F 84 17 165/88 97 12/16/22 19:36 97.7 F 97 H 21 121/60 95 12/16/22 17:55 96 12/16/22 16:00 97.9 F 86 16 166/91 97 12/16/22 11:40 97.9 F 85 16 116/80 94 L Pain Assessment - Last Documented Pain Intensity 0 Pain Scale Used 0-10 Pain Scale Intake and Output: Intake & Output 01/19/23 01/20/23 01/21/23 01/22/23 11:59 11:59 11:59 11:59 Intake Total 240 0449 7679 Output Total 1282 5332 Balance 240 0934 0623 Weight 80.2 kg Lab Results: Lab Results-Last 24 Hours 12/16/22 12/16/22 12/17/22 Range/Units 05:24 05:24 05:23 WBC 6.3 7.1 (4.0-10.5) x10^3/uL RBC 4.94 4.87 (4.1-5.6) x10^6/uL Hgb 14.7 14.6 (12.5-18.0) g/dL Hct 46.3 46.9 (42-50) % MCV 93.7 96.3 (78-100) fL MCH 29.8 30.0 (26-32) pg MCHC 31.7 L 31.1 L (32-36) g/dL RDW 13.9 14.0 (11.5-14.0) % Plt Count 218 187 (150-450) x10^3/uL MPV 11.9 H 11.6 H (7.5-11.0) fL Sodium 138 (137-145) mmol/L Potassium 4.3 (3.5-5.1) mmol/L Chloride 112 H (98-107) mmol/L Carbon Dioxide 22 (22-30) mmol/L Anion Gap 8.1 (5-15) MEQ/L BUN 30 H (9-20) mg/dL Creatinine 1.27 H (0.66-1.25) mg/dL Estimated GFR 57.7 ML/MIN Glucose 88 (74-106) mg/dL Calcium 8.6 (8.4-10.2) mg/dL Total Bilirubin 0.50 (0.2-1.3) mg/dL AST 20 (17-59) U/L ALT 16 (0-50) U/L Alkaline Phosphatase 91 (38-126) U/L Serum Total Protein 6.4 (6.3-8.2) g/dL Albumin 3.5 (3.5-5.0) g/dL 12/17/22 Range/Units 05:23 WBC (4.0-10.5) x10^3/uL RBC (4.1-5.6) x10^6/uL Hgb (12.5-18.0) g/dL Hct (42-50) % MCV (78-100) fL MCH (26-32) pg MCHC (32-36) g/dL RDW (11.5-14.0) % Plt Count (150-450) x10^3/uL MPV (7.5-11.0) fL Sodium 138 (137-145) mmol/L Potassium 4.0 (3.5-5.1) mmol/L Chloride 112 H (98-107) mmol/L Carbon Dioxide 21 L (22-30) mmol/L Anion Gap 9.0 (5-15) MEQ/L BUN 25 H (9-20) mg/dL Creatinine 1.26 H (0.66-1.25) mg/dL Estimated GFR 58.2 ML/MIN Glucose 85 (74-106) mg/dL Calcium 8.5 (8.4-10.2) mg/dL Total Bilirubin 0.60 (0.2-1.3) mg/dL AST 18 (17-59) U/L ALT 14 (0-50) U/L Alkaline Phosphatase 92 (38-126) U/L Serum Total Protein 6.3 (6.3-8.2) g/dL Albumin 3.4 L (3.5-5.0) g/dL Radiology Exams: Radiology Procedures Category Date Time Status MRI BRAIN W/O CONTRAST [MRI] Routine Exams 12/15/22 11:15 Completed Multi-Disciplinary Progress Notes: Multi-Disciplinary Progress Notes 12/16/22 10:51 OT Plan of Care Note by Lamar Botello OT Eval OT Eval and Treat MD Order Start: 12/15/22 08:14 Freq: ROUTINE Status: Active Protocol: Created 12/15/22 08:14 JACINTA (Rec: 12/15/22 08:14 JACINTA [id number]) Document 12/15/22 17:24 SHERRELL (Rec: 12/15/22 17:24 SHERRELL [id number]) OT Assessment Pertinent Past Medical History PMH: AFIB,TIA, BACK SURGERY IN 2021, RIGHT ROTATOR CUFF SX IN 2000, LEFT RTC SURGERY IN 2004, CATARACTS REMOVED CURRENT: PATIENT TRIED TO GET UP AROUND 10 PM FOR BATHROOM, AND UNABLE TO MOVE LEFT LEG AND ARM. PATIENT ADMITTED TO HOSPITAL FOR POSSIBLE CVA. PATIENT PRESENTS WITH IMPAIRMENTS IN COORDINATION, BALANCE, AND LEFT SIDE WEAKNESS. Equipment at Home Prior to Admission None Comment BATHROOM: TUB/SHOWER COMBO, RAISED TOILET SEAT LIVES IN 1 LEVEL HOUSE WITH 2 STEPS TO ENTER Date 12/16/22 Feeding WFL Comment SET UP ASSIST Grooming Impaired Comment MIN ASSIST Bathing Impaired Comment MOD ASSIST Dressing Impaired Comment UB: MIN ASSIST LB: MAX ASSIST SOCKS/SHOES: MAX ASSIST Toileting Impaired Comment MOD ASSIST (CLOTHING MANAGEMENT) HYGIENE (SBA) IADLS (If indicated) Homemaking,etc Impaired Bed Mobility Impaired Comment MOD ASSIST FOR SUPINE<>SIT T/F Toilet Transfers Impaired Comment MOD ASSIST Functional Transfers Impaired Comment MOD ASSIST (RECOMMEND MIN ASSIST X2) Functional Endurance FAIR (-): APPROXIMATELY 15 MINUTES IN SITTING POOR (+): APPROXIMATELY 5 MINUTES IN STANDING Cognition ALERT AND ORIENTED X4, FAIR AWARENESS TO LEFT LATERAL LEAN Other Objective Data NO REPORTED PAIN, LEFT UE MMT: 4-/5 AND RIGHT UE MMT: 4+/5, VISUAL ACUITY WFL, SIGNIFICANT LEFT LATERAL LEAN AND KNEE BUCKLING IN STANDING. MIN ASSIST FOR SITTING BALANCE (UE SUPPORT); MAX ASSIST WITH UNSUPPORTED SITTING. Adaptive Equipment/Durable Medical RAISED TOILET SEAT WITH Equipment needed/recommended HANDLES, TUB TRANSFER BENCH, HANDRAIL INTO HOME; OUTPATIENT THERAPY UPON RETURN HOME. Functional Problem List PATIENT PRESENTS WITH LEFT UE AND LE WEAKNESS, IMPAIRED BALANCE, POOR INTERLIMB COORDINATION, DECREASED ACTIVITY TOLERANCE, AND SAFETY AWARENESS Pain Limitations 0/10 Therapuetic Interventions ADLS, FUNCTIONAL ACTIVITY, THERAPEUTIC EXERCISES, NEURO REHAB, FUNCTIONAL TRANSFERS AND MOBILITY, SAFETY AWARENESS Functional Goals of Treatment 1. PATIENT WILL COMPLETE ADLS WITH SBA WITHIN 14 DAYS TO MAXIMIZE INDEPENDENCE WITH I/ ADLS AND REDUCE CAREGIVER BURDEN. 2. PATIENT WILL COMPLETE FUNCTIONAL TRANSFERS MOD INDEP WITHIN 14 DAYS TO IMPROVE INDEPENDENCE WITH I/ADLS. 3. PATIENT WILL INCREASE BUE STRENGTH TO 4+/5 MMT TO IMPROVE ABILITY TO MANAGE AND CARRY I/ADL OBJECTS (CLOTHING, TOILETRY OBJECTS, WALKER, MEALS/CUPS) WITHIN 14 DAYS. 4. PATIENT WILL DEMO UNDERSTANDING AND INDEPENDENCE WITH ALL SAFETY AND ADL EDUCATION WITHIN 14 DAYS TO MAXIMIZE SAFETY WITH RETURN HOME. OT Inpatient Plan of Care Date of Evaluation 12/16/22 Treatment Diagnosis LEFT LE WEAKNESS Frequency/Duration 5X/WEEK Patient assessed for Rehab Services Yes Was notification received of nursing Yes assessment trigger Chart screen completed Yes Are referral orders warranted for Yes evaluation Is an intervention justified at this Yes time Initialized on 12/16/22 10:51 - END OF NOTE Assessment/Plan (1) TIA (transient ischemic attack) Current Visit: Yes Status: Acute Qualifiers: Transient cerebral ischemia type: carotid artery syndrome (hemispheric) Qualified Code(s): G45.1 - Carotid artery syndrome (hemispheric) Assessment & Plan: Chief Complaint Diagnosis left lower extrimity weakness for 1 day Allergies Allergy/AdvReac Type Severity Reaction Status Date / Time No Known Drug Allergies Allergy Unverified 01/20/16 17:03 Vital Signs (Last 24 hours) Temp Pulse Resp BP Pulse Ox 12/17/22 07:59 97.8 F 80 14 149/97 98 12/17/22 06:52 94 L 12/17/22 03:55 97.5 F 84 16 164/90 95 12/16/22 23:42 97.8 F 84 17 165/88 97 12/16/22 19:36 97.7 F 97 H 21 121/60 95 12/16/22 17:55 96 12/16/22 16:00 97.9 F 86 16 166/91 97 12/16/22 11:40 97.9 F 85 16 116/80 94 L Home Medications Medication Instructions Recorded Confirmed Last Taken Type Apixaban [Eliquis 2.5 mg Tablet] 2.5 mg PO BID 12/15/22 12/15/22 12/14/22 11:00 History Ascorbic Acid [Vitamin C] 1,000 mg PO HS 12/15/22 12/15/22 12/13/22 23:00 History Calcium Carbonate/Vitamin D3 1 each PO HS 12/15/22 12/15/22 12/13/22 23:00 History [Calcium 250-D Tablet] Metoprolol Succinate 100 mg 100 mg PO DAILY 12/15/22 12/15/22 12/14/22 11:00 History [Toprol Xl 100 MG] Sacubitril/Valsartan [Entresto 24 1 each PO BID 12/15/22 12/15/22 12/14/22 11:00 History mg-26 mg Tablet] Current Medications Generic Name Dose Route Start Last Admin Trade Name Freq PRN Reason Stop Dose Admin Acetaminophen 325 mg 12/16/22 07:38 12/16/22 08:16 Acetaminophen 325 Mg Tablet PO 01/15/23 07:37 325 mg Q4H PRN PRN Administration PAIN, FEVER, HEADACHE Apixaban 2.5 mg 12/15/22 11:00 12/16/22 21:16 Apixaban 2.5 Mg Tablet PO 01/14/23 10:59 2.5 mg BID MASON Administration Ascorbic Acid 1,000 mg 12/15/22 22:00 12/16/22 21:17 Ascorbic Acid 500 Mg Tablet PO 01/14/23 21:59 1,000 mg HS MASON Administration Calcium Carbonate 0.5 tab 12/15/22 22:00 12/16/22 21:17 Calcium 500 Mg W/Vit D PO 01/14/23 21:59 0.5 tab HS MASON Administration Sodium Chloride 1,000 mls @ 100 mls/hr 12/15/22 08:45 12/17/22 03:52 Sodium Chloride 0.9% 1000 Ml IV 01/14/23 08:44 100 mls/hr .Q10H MASON Administration Metoprolol Succinate 100 mg 12/15/22 11:00 12/16/22 09:37 Metoprolol Succinate 100 Mg Tablet.Sa PO 01/14/23 10:59 100 mg DAILY MASON Administration Pantoprazole Sodium 40 mg 12/15/22 10:00 12/16/22 09:37 Pantoprazole 40 Mg Vial IV 01/14/23 09:59 40 mg DAILY MASON Administration Sacubitril/Valsartan 0.5 tablet 12/15/22 11:00 12/16/22 21:17 Sacubitril/Valsartan 1 Tablet Tablet PO 01/14/23 10:59 0.5 tablet BID MASON Administration Senna 8.6 mg 12/17/22 07:15 Senna 8.6 Mg Tablet PO 01/15/23 16:54 DAILY PRN PRN constipation Discontinued Medications Generic Name Dose Route Start Last Admin Trade Name Freq PRN Reason Stop Dose Admin Senna 8.6 mg 12/16/22 16:55 12/16/22 17:02 Senna 8.6 Mg Tablet PO 01/16/23 09:59 8.6 mg DAILY PRN Administration constipation Intake & Output (Last 24 hours) 12/14/22 12/15/22 12/16/22 12/17/22 11:59 11:59 11:59 11:59 Intake Total 240 2809 3863 Output Total 1675 1500 Balance 240 1134 2363 Weight 80.2 kg Laboratory Results (Last 24 hours) 12/17/22 12/17/22 12/16/22 05:23 05:23 05:24 WBC 7.1 RBC 4.87 Hgb 14.6 Hct 46.9 MCV 96.3 MCH 30.0 MCHC 31.1 L RDW 14.0 Plt Count 187 MPV 11.6 H Sodium 138 138 Potassium 4.0 4.3 Chloride 112 H 112 H Carbon Dioxide 21 L 22 Anion Gap 9.0 8.1 BUN 25 H 30 H Creatinine 1.26 H 1.27 H Estimated GFR 58.2 57.7 Glucose 85 88 Calcium 8.5 8.6 Total Bilirubin 0.60 0.50 AST 18 20 ALT 14 16 Alkaline Phosphatase 92 91 Serum Total Protein 6.3 6.4 Albumin 3.4 L 3.5 12/16/22 05:24 WBC 6.3 RBC 4.94 Hgb 14.7 Hct 46.3 MCV 93.7 MCH 29.8 MCHC 31.7 L RDW 13.9 Plt Count 218 MPV 11.9 H Sodium Potassium Chloride Carbon Dioxide Anion Gap BUN Creatinine Estimated GFR Glucose Calcium Total Bilirubin AST ALT Alkaline Phosphatase Serum Total Protein Albumin Orders (Last 24 hours) Category Date Time Status CBC AM.LAB Lab 12/17/22 05:23 Completed CMP AM.LAB Lab 12/17/22 05:23 Completed Acetaminophen 325 mg [Tylenol 325 mg] Med 12/16/22 07:38 Active 325 mg PO Q4H PRN PRN Senna 8.6 mg [Senokot 8.6 mg] Med 12/16/22 16:55 Discontinued 8.6 mg PO DAILY PRN Senna 8.6 mg [Senokot 8.6 mg] Med 12/17/22 07:15 Active 8.6 mg PO DAILY PRN PRN Patient Care Notes (Last 24 hours) 12/16/22 12:13 Nursing Note by Shila Zamarripa ROUNDED ON PATIENT WITH DR. LIVINGSTON. NO NEW ORDERS AT THIS TIME. Initialized on 12/16/22 12:13 - END OF NOTE 12/16/22 10:51 OT Plan of Care Note by Lamar Botello OT Eval OT Eval and Treat Order Start: 12/15/22 08:14 Freq: ROUTINE Status: Active Protocol: Created 12/15/22 08:14 JACINTA (Rec: 12/15/22 08:14 JACINTA [id number]) Document 12/15/22 17:24 SHERRELL (Rec: 12/15/22 17:24 SHERRELL [id number]) OT Assessment Pertinent Past Medical History PMH: AFIB,TIA, BACK SURGERY IN 2021, RIGHT ROTATOR CUFF SX IN 2000, LEFT RTC SURGERY IN 2004, CATARACTS REMOVED CURRENT: PATIENT TRIED TO GET UP AROUND 10 PM FOR BATHROOM, AND UNABLE TO MOVE LEFT LEG AND ARM. PATIENT ADMITTED TO HOSPITAL FOR POSSIBLE CVA. PATIENT PRESENTS WITH IMPAIRMENTS IN COORDINATION, BALANCE, AND LEFT SIDE WEAKNESS. Equipment at Home Prior to Admission None Comment BATHROOM: TUB/SHOWER COMBO, RAISED TOILET SEAT LIVES IN 1 LEVEL HOUSE WITH 2 STEPS TO ENTER Date 12/16/22 Feeding WFL Comment SET UP ASSIST Grooming Impaired Comment MIN ASSIST Bathing Impaired Comment MOD ASSIST Dressing Impaired Comment UB: MIN ASSIST LB: MAX ASSIST SOCKS/SHOES: MAX ASSIST Toileting Impaired Comment MOD ASSIST (CLOTHING MANAGEMENT) HYGIENE (SBA) IADLS (If indicated) Homemaking,etc Impaired Bed Mobility Impaired Comment MOD ASSIST FOR SUPINE<>SIT T/F Toilet Transfers Impaired Comment MOD ASSIST Functional Transfers Impaired Comment MOD ASSIST (RECOMMEND MIN ASSIST X2) Functional Endurance FAIR (-): APPROXIMATELY 15 MINUTES IN SITTING POOR (+): APPROXIMATELY 5 MINUTES IN STANDING Cognition ALERT AND ORIENTED X4, FAIR AWARENESS TO LEFT LATERAL LEAN Other Objective Data NO REPORTED PAIN, LEFT UE MMT: 4-/5 AND RIGHT UE MMT: 4+/5, VISUAL ACUITY WFL, SIGNIFICANT LEFT LATERAL LEAN AND KNEE BUCKLING IN STANDING. MIN ASSIST FOR SITTING BALANCE (UE SUPPORT); MAX ASSIST WITH UNSUPPORTED SITTING. Adaptive Equipment/Durable Medical RAISED TOILET SEAT WITH Equipment needed/recommended HANDLES, TUB TRANSFER BENCH, HANDRAIL INTO HOME; OUTPATIENT THERAPY UPON RETURN HOME. Functional Problem List PATIENT PRESENTS WITH LEFT UE AND LE WEAKNESS, IMPAIRED BALANCE, POOR INTERLIMB COORDINATION, DECREASED ACTIVITY TOLERANCE, AND SAFETY AWARENESS Pain Limitations 0/10 Therapuetic Interventions ADLS, FUNCTIONAL ACTIVITY, THERAPEUTIC EXERCISES, NEURO REHAB, FUNCTIONAL TRANSFERS AND MOBILITY, SAFETY AWARENESS Functional Goals of Treatment 1. PATIENT WILL COMPLETE ADLS WITH SBA WITHIN 14 DAYS TO MAXIMIZE INDEPENDENCE WITH I/ ADLS AND REDUCE CAREGIVER BURDEN. 2. PATIENT WILL COMPLETE FUNCTIONAL TRANSFERS MOD INDEP WITHIN 14 DAYS TO IMPROVE INDEPENDENCE WITH I/ADLS. 3. PATIENT WILL INCREASE BUE STRENGTH TO 4+/5 MMT TO IMPROVE ABILITY TO MANAGE AND CARRY I/ADL OBJECTS (CLOTHING, TOILETRY OBJECTS, WALKER, MEALS/CUPS) WITHIN 14 DAYS. 4. PATIENT WILL DEMO UNDERSTANDING AND INDEPENDENCE WITH ALL SAFETY AND ADL EDUCATION WITHIN 14 DAYS TO MAXIMIZE SAFETY WITH RETURN HOME. OT Inpatient Plan of Care Date of Evaluation 12/16/22 Treatment Diagnosis LEFT LE WEAKNESS Frequency/Duration 5X/WEEK Patient assessed for Rehab Services Yes Was notification received of nursing Yes assessment trigger Chart screen completed Yes Are referral orders warranted for Yes evaluation Is an intervention justified at this Yes time Initialized on 12/16/22 10:51 - END OF NOTE (2) Hypertensive CHF (congestive heart failure) Current Visit: Yes Status: Acute Qualifiers: Heart failure type: combined systolic and diastolic Heart failure chronicity: acute on chronic Qualified Code(s): I11.0 - Hypertensive heart disease with heart failure; I50.43 - Acute on chronic combined systolic (congestive) and diastolic (congestive) heart failure Code(s): I11.0 - HYPERTENSIVE HEART DISEASE WITH HEART FAILURE (3) Systolic CHF with reduced left ventricular function, NYHA class 3 Current Visit: Yes Status: Acute Code(s): I50.20 - UNSPECIFIED SYSTOLIC (CONGESTIVE) HEART FAILURE (4) A-fib Current Visit: No Status: Acute Qualifiers: Atrial fibrillation type: unspecified Qualified Code(s): I48.91 - Unspecified atrial fibrillation Code(s): I48.91 - UNSPECIFIED ATRIAL FIBRILLATION
[2022-12-17] MEDS: ENTRESTO 49 MG-51 MG TABLET PO SCH ×2 (09:35→20:53)
[2022-12-17] MEDS: ELIQUIS 2.5 MG TABLET PO SCH ×2 (09:36→20:53)
[2022-12-17] MEDS: PROTONIX 40 MG IV IV SCH (09:36)
[2022-12-17] MEDS: Toprol Xl 100 MG PO SCH (09:36)
[2022-12-17] MEDS: Calcium 500MG W/Vit D Tablet PO SCH (20:53)
[2022-12-17] MEDS: Vitamin C 500 MG PO SCH (20:53)
[2022-12-18] MEDS: ENTRESTO 49 MG-51 MG TABLET PO SCH (09:57)
[2022-12-18] MEDS: Toprol Xl 100 MG PO SCH (09:57)
[2022-12-18] MEDS: ELIQUIS 2.5 MG TABLET PO SCH (09:57)
[2022-12-18] MEDS ORDERED: Protonix 40MG Tablet PO SCH (10:00)
--- NOTE | 2022-12-18 11:21 | XRAY ---
Indication: TIA. Comparison: January 20, 2016 Portable chest again demonstrates minimal subsegmental atelectasis/scarring and tiny bilateral calcified granulomas. Heart not enlarged for AP portable technique. Bony thorax intact again with osteopenia and degenerative changes. Interval T8/T9 vertebroplasty. Impression: Continued nonacute chest with chronic features.
[2022-12-18 12:03] VITALS: BP 133/78; PULSE 88; O2SAT 96
--- NOTE | 2022-12-18 13:36 | PCM.DS ---
Discharge Summary Date of Admission: 12/15/22 12:30 Admitting Physician: ELLA LIVINGSTON Primary Care Provider: ELLA LIVINGSTON Allergies Allergies No Known Drug Allergies Allergy (Unverified 01/20/16 17:03) Hospital Summary - Hospital Course Hospital Course: Chief Complaint Diagnosis left lower extrimity weakness for 1 day Allergies Allergy/AdvReac Type Severity Reaction Status Date / Time No Known Drug Allergies Allergy Unverified 01/20/16 17:03 Vital Signs (Last 24 hours) Temp Pulse Resp BP Pulse Ox 12/18/22 12:00 97.8 F 88 16 133/78 96 12/18/22 07:50 97.7 F 96 H 16 135/83 95 12/18/22 07:35 96 12/18/22 03:56 97.8 F 93 H 19 144/82 98 12/17/22 23:45 97.8 F 81 17 131/84 95 12/17/22 19:30 97.7 F 83 17 122/86 98 12/17/22 19:08 93 L 12/17/22 16:00 97.5 F 51 L 16 131/96 97 Home Medications Medication Instructions Recorded Confirmed Last Taken Type Apixaban [Eliquis 2.5 mg Tablet] 2.5 mg PO BID 12/15/22 12/15/22 12/14/22 11:00 History Ascorbic Acid [Vitamin C] 1,000 mg PO HS 12/15/22 12/15/22 12/13/22 23:00 History Calcium Carbonate/Vitamin D3 1 each PO HS 12/15/22 12/15/22 12/13/22 23:00 History [Calcium 250-D Tablet] Metoprolol Succinate 100 mg 100 mg PO DAILY 12/15/22 12/15/22 12/14/22 11:00 History [Toprol Xl 100 MG] Sacubitril/Valsartan [Entresto 24 1 each PO BID 12/15/22 12/15/22 12/14/22 11:00 History mg-26 mg Tablet] Current Medications Discontinued Medications Generic Name Dose Route Start Last Admin Trade Name Freq PRN Reason Stop Dose Admin Acetaminophen 325 mg 12/16/22 07:38 12/16/22 08:16 Acetaminophen 325 Mg Tablet PO 01/15/23 07:37 325 mg Q4H PRN PRN Administration PAIN, FEVER, HEADACHE Apixaban 2.5 mg 12/15/22 11:00 12/18/22 09:57 Apixaban 2.5 Mg Tablet PO 01/14/23 10:59 2.5 mg BID MASON Administration Ascorbic Acid 1,000 mg 12/15/22 22:00 12/17/22 20:53 Ascorbic Acid 500 Mg Tablet PO 01/14/23 21:59 1,000 mg HS MASON Administration Calcium Carbonate 0.5 tab 12/15/22 22:00 12/17/22 20:53 Calcium 500 Mg W/Vit D PO 01/14/23 21:59 0.5 tab HS MASON Administration Sodium Chloride 1,000 mls @ 100 mls/hr 12/15/22 08:45 12/17/22 23:37 Sodium Chloride 0.9% 1000 Ml IV 01/14/23 08:44 100 mls/hr .Q10H MASON Administration Metoprolol Succinate 100 mg 12/15/22 11:00 12/18/22 09:57 Metoprolol Succinate 100 Mg Tablet.Sa PO 01/14/23 10:59 100 mg DAILY MASON Administration Pantoprazole Sodium 40 mg 12/15/22 10:00 12/17/22 09:36 Pantoprazole 40 Mg Vial IV 01/14/23 09:59 40 mg DAILY MASON Administration Pantoprazole Sodium 40 mg 12/18/22 10:00 12/18/22 09:57 Protonix (Pantoprazole) 40 Mg Tablet PO 01/17/23 09:59 40 mg DAILY MASON Administration Sacubitril/Valsartan 0.5 tablet 12/15/22 11:00 12/18/22 09:57 Sacubitril/Valsartan 1 Tablet Tablet PO 01/14/23 10:59 0.5 tablet BID MASON Administration Senna 8.6 mg 12/16/22 16:55 12/16/22 17:02 Senna 8.6 Mg Tablet PO 01/16/23 09:59 8.6 mg DAILY PRN Administration constipation Senna 8.6 mg 12/17/22 07:15 Senna 8.6 Mg Tablet PO 01/15/23 16:54 DAILY PRN PRN constipation Intake & Output (Last 24 hours) 12/16/22 12/17/22 12/18/2223 11:59 11:59 11:59 11:59 Intake Total 2809 4463 3494 Output Total 1675 1900 900 Balance 1134 2563 2594 Orders (Last 24 hours) Category Date Time Status Discharge Routine Discharge 12/18/22 Ordered Discharge/Telephone Order Routine Discharge 12/18/22 12:54 Active CHEST 1 VIEW (PORTABLE) Urgent Exams 12/18/22 10:42 Completed PANTOPRAZOLE 40 mg Tablet [Protonix 40MG Tablet] Med 12/18/22 10:00 Dis continued 40 mg PO DAILY Discharge Transfer Routine Transfer 12/18/22 Completed Patient Care Notes (Last 24 hours) 12/18/22 10:15 Case Management Note by Tanika Granger S/W PATIENT AFTER WORKING WITH PT- HE IS AGREEABLE TO CONTINUE TO STAY FOR PT PRIOR TO RETURNING HOME. WILL PLAN TO SWING TODAY Initialized on 12/18/22 10:15 - END OF NOTE 12/18/22 08:55 Nursing Note by Amrit Dwyer Telemed neuro called to follow up with patient and informed them no teleneuro services needed at this time. Initialized on 12/18/22 08:55 - END OF NOTE - Vitals & Intake/Output Vital Signs: Vital Signs Temperature 97.8 F 12/18/22 12:00 Pulse Rate 88 12/18/22 12:00 Respiratory Rate 16 12/18/22 12:00 Blood Pressure 133/78 12/18/22 12:00 O2 Sat by Pulse Oximetry 96 12/18/22 12:00 Intake & Output: Intake & Output 12/16/22 12/17/22 12/18/22 12/19/22 11:59 11:59 11:59 11:59 Intake Total 2809 4463 3494 Output Total 1675 1900 900 Balance 1134 2563 2594 - Lab Result Diagrams: 12/17/22 05:23 12/17/22 05:23 - Radiology Exams Ordered Rad Exams-Entire Visit: Radiology Procedures Category Date Time Status CHEST 1 VIEW (PORTABLE) Urgent Exams 12/18/22 10:42 Completed - Procedures and Test Procedures and Tests throughout Hospitalization: Therapy Orders & Screens 12/15/22 08:09 Speech Therapy Eval & Treat [ST Eval & Treat ( Order)] .as ordered Comment: Physician Instructions: Reason For Exam: Evaluate: Yes Treat: Yes Reason for Eval: STROKE Diagnosis: LLE WEAKNESS 12/15/22 08:14 OT Eval and Treat ( Order) ROUTINE Comment: Consulting Provider: Physician Instructions: Reason For Exam: Diagnosis: LLE WEAKNESS PT Eval & Treat ( Order) ONCE Reason for Eval:: weakness Diagnosis: LLE WEAKNESS 12/16/22 05:14 Oxygen Nasal Cannula 3 lpm Comment: Diagnosis: CVA, LLE AFFECTED Discharge Exam General Appearance: no apparent distress, alert Neurologic Exam: alert, oriented x 3, cooperative, normal mood/affect, nml cerebellar function, sensation nml, No motor deficits Eye Exam: PERRL, EOMI, eyes nml inspection Ears, Nose, Throat Exam: normal ENT inspection, pharynx normal, moist mucous membranes Neck Exam: normal inspection, non-tender, supple, full range of motion Respiratory Exam: normal breath sounds, lungs clear, No respiratory distress Cardiovascular Exam: regular rate/rhythm, normal heart sounds Gastrointestinal/Abdomen Exam: soft, No tenderness, No mass Male Genitalia Exam: deferred Rectal Exam: deferred Back Exam: normal inspection, normal range of motion, No CVA tenderness, No vertebral tenderness Extremity Exam: normal inspection, normal range of motion Skin Exam: normal color, warm, dry Final Diagnosis/Problem List - Final Discharge Diagnosis/Problem (1) TIA (transient ischemic attack) Status: Resolved (2) Hypertensive CHF (congestive heart failure) Status: Chronic Code(s): I11.0 - HYPERTENSIVE HEART DISEASE WITH HEART FAILURE (3) Systolic CHF with reduced left ventricular function, NYHA class 3 Status: Chronic Code(s): I50.20 - UNSPECIFIED SYSTOLIC (CONGESTIVE) HEART FAILURE (4) A-fib Status: Acute Code(s): I48.91 - UNSPECIFIED ATRIAL FIBRILLATION - Discharge Discharge Date: 12/18/22 Dis[facility] Condition: Stable Prescriptions: No Action Apixaban [Eliquis 2.5 mg Tablet] 2.5 mg PO BID Sacubitril/Valsartan [Entresto 24 mg-26 mg Tablet] 1 each PO BID Metoprolol Succinate 100 mg [Toprol Xl 100 MG] 100 mg PO DAILY Calcium Carbonate/Vitamin D3 [Calcium 250-D Tablet] 1 each PO HS Ascorbic Acid [Vitamin C] 1,000 mg PO HS Follow up with: JEET RANGEL [ACTIVE STAFF] - TAQUERIA GORMAN MD [NON-STAFF PHY W/O PRIVILEGES] - ELLA LIVINGSTON MD [Primary Care Provider] -
== END 2022-12-18 13:25 | disposition swing bed (61) | DRG 69 ==
LOC: ED 00:45 → MED SURG 07:55 → OBSVTOIN 12:30
PROVIDERS: ADMIT General Practice; ATTEND General Practice
DX: G45.9 Transient cerebral ischemic attack, unspecified (principal); I50.20 Unspecified systolic (congestive) heart failure; I11.0 Hypertensive heart disease with heart failure; I48.91 Unspecified atrial fibrillation; Z79.899 Other long term (current) drug therapy; Z20.828 Contact with and (suspected) exposure to other viral communicable diseases; Z79.01 Long term (current) use of anticoagulants
CPT/HCPCS: 0241U; 36415; 70450; 70551; 71045; 72131; 80053; 80061; 81001; 82550; 83036; 83721; 83735; 84484; 85025; 85027; 85610; 85730; 94762; 97110; 97161; 97165; 99285; A9270-GY

== ENCOUNTER 2022-12-18 11:47 | Inpatient (IN) | payer MEDICARE, BC ==
[2022-12-18] MEDS ORDERED: SENOKOT 8.6 MG PO PRN (13:28)
[2022-12-18] MEDS ORDERED: Aplisol ID ONE (13:28)
[2022-12-18] MEDS ORDERED: TYLENOL 325 MG PO PRN (13:28)
[2022-12-18] MEDS: Calcium 500MG W/Vit D Tablet PO SCH (21:00)
[2022-12-18] MEDS: ELIQUIS 2.5 MG TABLET PO SCH (21:00)
[2022-12-18] MEDS: Vitamin C 500 MG PO SCH (21:01)
[2022-12-18] MEDS: ENTRESTO 49 MG-51 MG TABLET PO SCH (21:01)
[2022-12-19] MEDS: Toprol Xl 100 MG PO SCH (08:24)
[2022-12-19] MEDS: ELIQUIS 2.5 MG TABLET PO SCH ×2 (08:24→22:19)
[2022-12-19] MEDS: ENTRESTO 49 MG-51 MG TABLET PO SCH ×2 (08:24→22:18)
--- NOTE | 2022-12-19 21:11 | PCM.HP.ADD ---
Addendum to History & Physical - History & Physical Addendum Addendum to History & Physical: This certifies that the History & Physical in the electronic chart reflects the current health status of the patient. If there are changes in the H&P these changes/exceptions are listed as follows.
[2022-12-19] MEDS: Vitamin C 500 MG PO SCH (22:18)
[2022-12-19] MEDS: Calcium 500MG W/Vit D Tablet PO SCH (22:19)
[2022-12-20] MEDS: Toprol Xl 100 MG PO SCH (09:57)
[2022-12-20] MEDS: ENTRESTO 49 MG-51 MG TABLET PO SCH ×2 (09:58→21:51)
[2022-12-20] MEDS: ELIQUIS 2.5 MG TABLET PO SCH ×2 (09:59→21:51)
[2022-12-20] MEDS: Calcium 500MG W/Vit D Tablet PO SCH (21:51)
[2022-12-20] MEDS: Vitamin C 500 MG PO SCH (21:51)
[2022-12-21] MEDS: ENTRESTO 49 MG-51 MG TABLET PO SCH ×2 (08:50→20:49)
[2022-12-21] MEDS: ELIQUIS 2.5 MG TABLET PO SCH ×2 (08:51→20:50)
[2022-12-21] MEDS: Toprol Xl 100 MG PO SCH (08:51)
[2022-12-21] MEDS: Vitamin C 500 MG PO SCH (20:49)
[2022-12-21] MEDS: Calcium 500MG W/Vit D Tablet PO SCH (20:49)
[2022-12-22 07:34] VITALS: BP 149/89; PULSE 77; O2SAT 93
[2022-12-22] MEDS: ELIQUIS 2.5 MG TABLET PO SCH (08:42)
[2022-12-22] MEDS: ENTRESTO 49 MG-51 MG TABLET PO SCH (08:42)
[2022-12-22] MEDS: Toprol Xl 100 MG PO SCH (08:43)
--- NOTE | 2022-12-22 12:58 | PCM.DS ---
Discharge Summary Date of Admission: 12/18/22 13:26 Admitting Physician: ELLA LIVINGSTON Primary Care Provider: ELLA LIVINGSTON Allergies Allergies No Known Drug Allergies Allergy (Unverified 01/20/16 17:03) Hospital Summary - Hospital Course Hospital Course: Chief Complaint Diagnosis DECONDITIONING R/T STROKE Allergies Allergy/AdvReac Type Severity Reaction Status Date / Time No Known Drug Allergies Allergy Unverified 01/20/16 17:03 Vital Signs (Last 24 hours) Temp Pulse Resp BP Pulse Ox 12/22/22 07:32 97.6 F 77 16 149/89 93 L 12/21/22 19:47 98.2 F 94 H 17 127/90 96 Current Medications Generic Name Dose Route Start Last Admin Trade Name Freq PRN Reason Stop Dose Admin Acetaminophen 325 mg 12/18/22 13:28 Acetaminophen 325 Mg Tablet PO 01/15/23 07:37 Q4H PRN PRN PAIN, FEVER, HEADACHE Apixaban 2.5 mg 12/18/22 22:00 12/22/22 08:42 Apixaban 2.5 Mg Tablet PO 01/14/23 10:59 2.5 mg BID MASON Administration Ascorbic Acid 1,000 mg 12/18/22 22:00 12/21/22 20:49 Ascorbic Acid 500 Mg Tablet PO 01/14/23 21:59 1,000 mg HS MASON Administration Calcium Carbonate 0.5 tab 12/18/22 22:00 12/21/22 20:49 Calcium Carbonate 500 Mg/Vitamin D 1 Tab Tablet PO 01/14/23 21:59 0.5 tab HS MASON Administration Metoprolol Succinate 100 mg 12/19/22 10:00 12/22/22 08:43 Metoprolol Succinate 100 Mg Tablet.Sa PO 01/14/23 10:59 100 mg DAILY MASON Administration Sacubitril/Valsartan 0.5 tablet 12/18/22 22:00 12/22/22 08:42 Sacubitril/Valsartan 1 Tablet Tablet PO 01/14/23 10:59 0.5 tablet BID MASON Administration Senna 8.6 mg 12/18/22 13:28 Senna 8.6 Mg Tablet PO 01/15/23 16:54 DAILY PRN PRN constipation Discontinued Medications Generic Name Dose Route Start Last Admin Trade Name Freq PRN Reason Stop Dose Admin Tuberculin PPD 5 unit 12/18/22 13:28 12/18/22 14:55 Aplisol (Tuberculin,Purif.Prot.Deriv.) 5 Unit/0.1 Ml Ml ID 12/18/22 13:29 Not Given ONCE ONE Intake & Output (Last 24 hours) 12/20/22 12/21/22 12/22/22 12/23/22 11:59 11:59 11:59 11:59 Intake Total 360 1100 740 Output Total 400 400 Balance -40 700 740 Weight 80.1 kg Orders (Last 24 hours) Category Date Time Status Discharge Routine Discharge 12/22/22 Ordered Discharge/Telephone Order Routine Discharge 12/22/22 Active BMP Q14D Lab 01/01/23 04:00 Ordered BMP Q14D Lab 01/15/23 04:00 Ordered Patient Care Notes (Last 24 hours) 12/22/22 09:40 Case Management Note by Tanika Granger S/W PATIENT- HE CONTINUES TO PLAN TO DC HOME WITH HIS TO ASSIST HIM. HE HAS BEEN SET UP FOR OTPT PHYSICAL THERAPY AND APPOINTMENT HAS BEEN PLACED IN DC INSTRUCTIONS. HE HAS A WALKER AT HOME BUT HAS NOT BEEN USING ONE HERE. Initialized on 12/22/22 09:40 - END OF NOTE - Vitals & Intake/Output Vital Signs: Vital Signs Temperature 97.6 F 12/22/22 07:32 Pulse Rate 77 12/22/22 07:32 Respiratory Rate 16 12/22/22 07:32 Blood Pressure 149/89 12/22/22 07:32 O2 Sat by Pulse Oximetry 93 L 12/22/22 07:32 Intake & Output: Intake & Output 12/20/22 12/21/22 12/22/22 12/23/22 11:59 11:59 11:59 11:59 Intake Total 360 1100 740 Output Total 400 400 Balance -40 700 740 Weight 80.1 kg - Procedures and Test Procedures and Tests throughout Hospitalization: Therapy Orders & Screens 12/18/22 13:28 OT Eval and Treat ( Order) ONCE Comment: Consulting Provider: Physician Instructions: Reason For Exam: Diagnosis: left lower extrimity weakness for 1 day PT Eval & Treat ( Order) ONCE Reason for Eval:: SWINGBED Diagnosis: DECONDITIONING R/T STROKE 12/18/22 15:02 OT Clarification Order ROUTINE Comment: Physician Instructions: Reason For Exam: OT Clarification: 5x/week to address strength, balance, activity tolerance to facilitate independence with I/ADLS and safe d/c. 12/18/22 17:56 PT Clarification Order ROUTINE Comment: Physician Instructions: Reason For Exam: PT Clarification: P.T. TO RX 5X/WK TO ADDRESS FUNCTIONAL MOBILITY AND GAIT TRAINING, THER EX, BALANCE ACTIVITIES, PT. ED. RE: SAFETY AWARENESS AND HEP TO MAXIMIZE FUNCTIONAL POTENTIAL FOR SAFE RETURN HOME. Discharge Exam General Appearance: no apparent distress, alert Neurologic Exam: alert, oriented x 3, cooperative, normal mood/affect, nml cerebellar function, sensation nml, No motor deficits Eye Exam: PERRL, EOMI, eyes nml inspection Ears, Nose, Throat Exam: normal ENT inspection, pharynx normal, moist mucous membranes Neck Exam: normal inspection, non-tender, supple, full range of motion Respiratory Exam: normal breath sounds, lungs clear, No respiratory distress Cardiovascular Exam: regular rate/rhythm, normal heart sounds Gastrointestinal/Abdomen Exam: soft, No tenderness, No mass Male Genitalia Exam: deferred Rectal Exam: deferred Back Exam: normal inspection, normal range of motion, No CVA tenderness, No vertebral tenderness Extremity Exam: normal inspection, normal range of motion Skin Exam: normal color, warm, dry Final Diagnosis/Problem List - Final Discharge Diagnosis/Problem (1) Debilitated patient Current Visit: Yes Status: Resolved Code(s): R53.81 - OTHER MALAISE (2) A-fib Current Visit: No Status: Chronic Code(s): I48.91 - UNSPECIFIED ATRIAL FIBRILLATION (3) Systolic CHF with reduced left ventricular function, NYHA class 3 Current Visit: Yes Status: Chronic Code(s): I50.20 - UNSPECIFIED SYSTOLIC (CONGESTIVE) HEART FAILURE (4) TIA (transient ischemic attack) Current Visit: Yes Status: Resolved - Discharge Discharge Date: 12/22/22 Disposition: Home, Self-Care Condition: Stable Prescriptions: Continue Apixaban [Eliquis 2.5 mg Tablet] 2.5 mg PO BID Sacubitril/Valsartan [Entresto 24 mg-26 mg Tablet] 1 each PO BID Metoprolol Succinate 100 mg [Toprol Xl 100 MG] 100 mg PO DAILY Calcium Carbonate/Vitamin D3 [Calcium 250-D Tablet] 1 each PO HS Ascorbic Acid [Vitamin C] 1,000 mg PO HS Outpatient Orders: Physical Therapy Eval & Treat Facility: [facility], Location: PHYSICAL THERAPY Instructions: Stroke (DC) Additional Instructions: YOUR FIRST PHYSICAL THERAPY APT IS 12/26@2PM Follow up with: ELLA LIVINGSTON MD [Primary Care Provider] - 12/29/22 10:15 am ([facility])
== END 2022-12-22 13:45 | disposition home or self-care (01) | DRG 948 ==
LOC: MED SURG 13:26
PROVIDERS: ADMIT General Practice; ATTEND General Practice
DX: R53.81 Other malaise (principal); I50.20 Unspecified systolic (congestive) heart failure; G45.1 Carotid artery syndrome (hemispheric); I11.0 Hypertensive heart disease with heart failure; I48.91 Unspecified atrial fibrillation; Z79.899 Other long term (current) drug therapy; Z20.828 Contact with and (suspected) exposure to other viral communicable diseases; Z79.01 Long term (current) use of anticoagulants
CPT/HCPCS: 97110-GP; A9270-GY